=== PATIENT | female | born 1980 | race Caucasian/White ===

== ENCOUNTER 2019-08-24 09:37 | Emergency (ER) | payer OTHER ==
--- NOTE | 2019-08-24 11:43 | EDM.PDOC ---
ED HPI GENERAL MEDICAL PROBLEM - General Chief Complaint: Chest Pain Stated Complaint: ARM NUMBNESS AND CHEST PAIN SENT BY HAJA Time Seen by Provider: 08/24/19 10:06 Source of Information: Reports: Patient History Limitations: Reports: No Limitations - History of Present Illness INITIAL COMMENTS - FREE TEXT/NARRATIVE: The patient presents from the walk in clinic for chest pain. She has some pain to the left chest. She has no shortness of breath with it. This started yesterday. The pain comes and goes. She did go to the walk in clinic for bilateral arm pain, swelling and numbness. 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 She has more numbness, pain and swelling now. She has no history of DVT or PE. She has no history of hypertension or heart disease. Her blood pressure was a little high in the clinic. Onset: Gradual Duration: Day(s): Location: Reports: Chest Quality: Reports: Sharp Severity: Mild Improves with: Reports: None Worsens with: Reports: None Associated Symptoms: Reports: Chest Pain. 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: Musculoskeletal History: Reports: Osteoarthritis Oncologic (Cancer) History: Reports: Cervix Social & Family History - Tobacco Use Smoking Status *Q: Current Every Day Smoker Years of Tobacco use: 20 Packs/Tins Daily: 0.5 ED ROS GENERAL - Review of Systems Review Of Systems: See Below Constitutional: Reports: No Symptoms HEENT: Reports: No Symptoms Respiratory: Reports: No Symptoms Cardiovascular: Reports: Chest Pain Endocrine: Reports: No Symptoms GI/Abdominal: Reports: No Symptoms : Reports: No Symptoms Musculoskeletal: Reports: Other (Bilateral arm numbness, pain and swelling) ED EXAM, GENERAL - Physical Exam Exam: See Below Exam Limited By: No Limitations General Appearance: Alert, No Apparent Distress Ears: Normal External Exam Nose: Normal Inspection Head: Atraumatic, Normocephalic Neck: Normal Inspection Respiratory/Chest: No Respiratory Distress, Lungs Clear, Normal Breath Sounds Cardiovascular: Regular Rate, Rhythm, No Edema, No Murmur GI/Abdominal: Soft, Non-Tender, No Organomegaly, No Mass Back Exam: Normal Inspection Extremities: Other (Tingling when taping the median nerve and numbness with flexion at both wrists. No weakness noted in both hands.) EKG INTERPRETATION EKG Date: 08/24/19 Time: 09:56 Rhythm: NSR Rate (Beats/Min): 66 [place]: Normal P-Wave: Present QRS: Normal ST-T: Normal QT: Normal Course - Vital Signs Last Recorded V/S: Last Vital Signs Temp 97.4 F 08/24/19 09:55 Pulse 70 08/24/19 09:55 Resp 16 08/24/19 09:55 BP 146/100 H 08/24/19 09:55 Pulse Ox 100 08/24/19 09:55 - Orders/Labs/Meds Orders: Active Orders 24 hr Category Date Time Status Cardiac Monitoring [RC] . DIRECTED Care 08/24/19 10:19 Active EKG Documentation Completion [RC] STAT Care 08/24/19 10:19 Active Chest 2V [CR] Stat Exams 08/24/19 10:19 Taken Labs: Laboratory Tests 08/24/19 08/24/19 08/24/19 Range/Units 10:35 10:35 10:35 WBC 8.21 (3.98-10.04) K/mm3 RBC 4.96 (3.98-5.22) M/mm3 Hgb 15.7 (11.2-15.7) gm/dl Hct 46.7 H (34.1-44.9) % MCV 94.2 (79.4-94.8) fl MCH 31.7 (25.6-32.2) pg MCHC 33.6 (32.2-35.5) g/dl RDW Std Deviation 42.7 (36.4-46.3) fL Plt Count 239 (182-369) K/mm3 MPV 9.1 L (9.4-12.3) fl Neut % (Auto) 54.4 (34.0-71.1) % Lymph % (Auto) 36.9 (19.3-51.7) % [place] % (Auto) 7.4 (4.7-12.5) % Eos % (Auto) 0.7 (0.7-5.8) Baso % (Auto) 0.5 (0.1-1.2) % Neut # (Auto) 4.46 (1.56-6.13) K/mm3 Lymph # (Auto) 3.03 (1.18-3.74) K/mm3 [place] # (Auto) 0.61 H (0.24-0.36) K/mm3 Eos # (Auto) 0.06 (0.04-0.36) K/mm3 Baso # (Auto) 0.04 (0.01-0.08) K/mm3 D-Dimer, Quantitative < 0.19 L (0.19-0.50) mg/L Sodium 141 (136-145) mEq/L Potassium 4.5 (3.5-5.1) mEq/L Chloride 106 (98-107) mEq/L Carbon Dioxide 28 (21-32) mEq/L Anion Gap 11.5 (5-15) BUN 14 (7-18) mg/dL Creatinine 0.7 (0.55-1.02) mg/dL Est Cr Clr Drug Dosing 104.93 mL/min Estimated GFR (MDRD) > 60 (>60) mL/min BUN/Creatinine Ratio 20.0 H (14-18) Glucose 96 (74-106) mg/dL Calcium 9.0 (8.5-10.1) mg/dL Total Bilirubin 0.3 (0.2-1.0) mg/dL AST 13 L (15-37) U/L ALT 24 (14-59) U/L Alkaline Phosphatase 62 (46-116) U/L Troponin I < 0.017 (0.00-0.056) ng/mL Total Protein 7.0 (6.4-8.2) g/dl Albumin 3.9 (3.4-5.0) g/dl Globulin 3.1 gm/dL Albumin/Globulin Ratio 1.3 (1-2) - Re-Assessments/Exams Free Text/Narrative Re-Assessment/Exam: 08/24/19 11:42 I ordered an EKG, CXR and labs. Her EKG shows a NSR with no acute changes. Her CXR looks good. Her CBC and CMP look good. Her troponin is negative. Her D-dimer is negative. I feel this is atypical chest pain and carpal tunnel syndrome. I will give her bilateral wrist splints, hydrocodone and a referral to Dr Graves. Departure - Departure Time of Disposition: 11:50 Disposition: Home, Self-Care 01 Condition: Good Clinical Impression: Atypical chest pain, Bilateral carpal tunnel syndrome Prescriptions: Hydrocodone/Acetaminophen [Hydrocodon-Acetaminophen 5-325] 1 - 2 each PO Q6HR PRN #15 tablet PRN Reason: Pain Referrals: PCP,None [Primary Care Provider] - Estiven Graves MD [Physician] - 1 Week Apoorva Fountain PA-C [Physician Animal Care Taker] - 2 Weeks Additional Instructions: Wear the splints as needed for comfort. They will be helpful at night and while you are working. Take tylenol or motrin for pain. If that does not work , take the hydrocodone. Follow up with Dr Graves our orthopedic surgeon in [facility] for your carpal tunnel. Follow up with Apoorva Fountain in our clinic for any other concerns. Please return if you are worse. Sepsis Event Note - Evaluation Sepsis Screening Result: No Definite Risk - Focused Exam Vital Signs: Vital Signs Temp Pulse Resp BP Pulse Ox 08/24/19 09:55 97.4 F 70 16 146/100 H 100 Date Exam was Performed: 08/24/19 Time Exam was Performed: 11:37 - My Orders Last 24 Hours: My Active Orders 08/24/19 10:19 Cardiac Monitoring [RC] . DIRECTED EKG Documentation Completion [RC] STAT Chest 2V [CR] Stat - Assessment/Plan Last 24 Hours: My Active Orders 08/24/19 10:19 Cardiac Monitoring [RC] . DIRECTED EKG Documentation Completion [RC] STAT Chest 2V [CR] Stat
--- NOTE | 2019-08-24 12:06 | CR ---
Chest: PA and lateral views of the chest were obtained. Comparison: No prior chest imaging. Heart size and mediastinum are normal. Lungs are clear. Minimal scoliosis is noted. No acute bony finding is seen. Impression: 1. Nothing acute is appreciated on two-view chest x-ray. Diagnostic code #2 This report was dictated in Mountain Standard Time
== END 2019-08-24 12:23 | disposition home or self-care (01) ==
LOC: JD.ED 09:37
DX: R07.89 Other chest pain (principal); G56.03 Carpal tunnel syndrome, bilateral upper limbs; M19.90 Unspecified osteoarthritis, unspecified site; F17.210 Nicotine dependence, cigarettes, uncomplicated
CPT/HCPCS: 36415; 71046; 71046-26; 80053; 84484; 85025; 85379; 93005; 93010; 99284; 99285-25

== ENCOUNTER 2020-02-02 08:15 | Day surgery (SDC) | payer OTHER ==
[~2020-02-02 08:15] MED LIST: Lactated Ringers 1,000 ML IV SCH; Lidocaine 1% 4 ML ONE; Lidocaine 1%/Sod Bicarbonate in NS 8.4% 1 ML Syringe IDERM PRN; Midazolam 1 MG/ML 2 ML SDV ONE; Propofol 200 MG/20 ML SDV ONE; Sodium Chloride 0.9% 10 ML Syringe FLUSH PRN; ePHEDrine Sulfate/0.9% NaCl/Pf 25 MG/5 ML SYRINGE IV ONE; fentaNYL 100 MCG/2 ML SDV ONE
[2020-02-02] MEDS ORDERED: Ketorolac 30 MG/ML SDV ONE (08:20)
--- NOTE | 2020-02-02 09:08 | PCM.PREANE ---
Preanesthetic Assessment - Procedure Proposed Procedure: right carpal tunnel release - Anesthesia/Transfusion/Family Hx Anesthesia History: Prior Anesthesia Without Reaction Family History of Anesthesia Reaction: No Transfusion History: No Prior Transfusion(s) - Review of Systems General: No Symptoms Pulmonary: No Symptoms Cardiovascular: No Symptoms Gastrointestinal: No Symptoms Neurological: No Symptoms Other: Reports: Anxiety - Physical Assessment NPO Status Date: 02/01/20 NPO Status Time: 19:30 Vital Signs: Last Vital Signs Temp 97.2 F 02/02/20 08:15 Pulse 70 02/02/20 08:15 Resp 16 02/02/20 08:15 BP 137/83 02/02/20 08:15 Pulse Ox 97 02/02/20 08:15 Height: 5 ft 7 in Weight: 93.894 kg ASA Class: 2 Mental Status: Alert & Oriented x3 Airway Class: Mallampati = 1 Dentition: Reports: Normal Dentition Thyro-Mental Finger Breadths: 3 Mouth Opening Finger Breadths: 3 ROM/Head Extension: Full Lungs: Clear to Auscultation, Normal Respiratory Effort Cardiovascular: Regular Rate, Regular Rhythm, No Murmurs - Lab Values: Laboratory Last Values SARS Virus RNA (PCR) Negative (NEGATIVE) 01/31/20 16:30 MRSA (PCR) Negative 01/31/20 08:56 - Allergies Allergies/Adverse Reactions: Allergies Allergy/AdvReac Type Severity Reaction Status Date / Time No Known Allergies Allergy Verified 08/24/19 09:59 - Blood Blood Available: No - Acknowledgements Anesthesia Type Planned: MAC Pt an Appropriate Candidate for the Planned Anesthesia: Yes Alternatives and Risks of Anesthesia Discussed w Pt/Guardian: Yes Pt/Guardian Understands and Agrees with Anesthesia Plan: Yes PreAnesthesia Questionnaire Cardiovascular History: Reports: Hypertension Respiratory History: Reports: None Gastrointestinal History: Reports: None 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: Musculoskeletal History: Reports: Osteoarthritis Neurological History: Reports: Migraines (off and on) Endocrine/Metabolic History: Reports: Obesity/BMI 30+ Oncologic (Cancer) History: Reports: Cervix - Past Surgical History Female Surgical History: Reports: Section, Hysterectomy Musculoskeletal Surgical History: Reports: Other (See Below) (spine) - SUBSTANCE USE Smoking Status *Q: Current Every Day Smoker Tobacco Use Within Last Twelve Months: Cigarettes Second Hand Smoke Exposure: Yes Days Per Week of Alcohol Use: 1 Recreational Drug Use History: No - HOME MEDS Home Medications: Home Meds Acetaminophen/HYDROcodone [[place]derlin 325-5 MG] 1 - 2 tab PO Q6H PRN #10 tablet 02/01 [Rx] - CURRENT (IN HOUSE) MEDS Current Meds: Current Medications Lactated Ringer's (Ringers, Lactated) 1,000 mls @ 125 mls/hr IV ASDIRECTED THAO Stop: 02/02/20 23:00 Lidocaine/Sodium Bicarbonate (Buffered Lidocaine 1% In Ns 8.4%) 0.25 ml IDERM ONETIME PRN PRN Reason: Prior to IV Start Stop: 02/02/20 18:00 Sodium Chloride (Saline Flush) 10 ml FLUSH ASDIRECTED PRN PRN Reason: Keep Vein Open Stop: 02/02/20 18:00 Discontinued Medications Ephedrine Sulfate (Ephedrine 25 Mg/5 Ml Syringe) Confirm Administered Dose 25 mg IV .STK-MED ONE Stop: 02/02/20 07:56 Fentanyl (Sublimaze) Confirm Administered Dose 100 mcg .ROUTE .STK-MED ONE Stop: 02/02/20 07:53 Lidocaine HCl (Xylocaine-Mpf 1%) Confirm Administered Dose 4 mls @ as directed .ROUTE .STK-MED ONE Stop: 02/02/20 07:53 Ketorolac Tromethamine (Toradol) Confirm Administered Dose 30 mg .ROUTE .STK- MED ONE Stop: 02/02/20 08:21 Midazolam HCl (Versed 1 Mg/Ml) Confirm Administered Dose 2 mg .ROUTE .STK-MED ONE Stop: 02/02/20 07:53 Propofol (Diprivan 20 Ml) Confirm Administered Dose 200 mg .ROUTE .STK-MED ONE Stop: 02/02/20 07:53
[2020-02-02] MEDS ORDERED: Bupivacaine 0.25% 10 ML SDV ONE ×2 (09:24→09:29)
[2020-02-02] MEDS ORDERED: Lidocaine 1% 50 ML MDV ONE (09:29)
[2020-02-02] MEDS ORDERED: ceFAZolin 1 GM Vial ONE (10:06)
[2020-02-02] MEDS ORDERED: Midazolam 1 MG/ML 2 ML SDV ONE (10:08)
[2020-02-02] MEDS ORDERED: Lidocaine 1% 2 ML ONE (10:08)
[2020-02-02] MEDS ORDERED: Ondansetron 4 MG/2 ML SDV IVPUSH PRN (10:42)
--- NOTE | 2020-02-02 10:43 | PCM48HPAN ---
Post Anesthesia Note - EVALUATION WITHIN 48HRS OF ANESTHETIC Vital Signs in Normal Range: Yes Patient Participated in Evaluation: Yes Respiratory Function Stable: Yes Airway Patent: Yes Cardiovascular Function Stable: Yes Hydration Status Stable: Yes Pain Control Satisfactory: Yes Nausea and Vomiting Control Satisfactory: Yes Mental Status Recovered: Yes Vital Signs: Last Vital Signs Temp 97.2 F 02/02/20 08:15 Pulse 70 02/02/20 08:15 Resp 16 02/02/20 08:15 BP 137/83 02/02/20 08:15 Pulse Ox 97 02/02/20 08:15 1038 125/89 54 20 98% 97.9
[2020-02-02] MEDS ORDERED: Acetaminophen/HYDROcodone 325-5 MG Tab PO PRN (10:57)
--- NOTE | 2020-02-06 12:20 | PCM.OPNOTE ---
- General Post-Op/Procedure Note Date of Surgery/Procedure: 02/02/20 Operative Procedure(s): right carpal tunnel release Pre Op Diagnosis: right median nerve compression neuropathy Post-Op Diagnosis: Same Anesthesia Technique: Local, MAC Primary Surgeon: Estiven Graves Anesthesia Provider: Shweta Parks Setup Operator: Mary Sandra EBL in mLs: 5 Complications: None Condition: Good
--- NOTE | 2020-02-06 14:45 | OR ---
DATE OF OPERATION: 02/02/2020 SURGEON: Estiven Graves MD OPERATION PERFORMED: Right carpal tunnel release. PREOPERATIVE DIAGNOSIS: Right median nerve compression neuropathy. POSTOPERATIVE DIAGNOSIS: Right median nerve compression neuropathy. ANESTHESIA: Local MAC. ANESTHESIA PROVIDER: Shweta Parks CRNA. DRYWALL CARRIER: Mary Sandra PA-C ESTIMATED BLOOD LOSS: Less than 5 mL. COMPLICATIONS: None. CONDITION: Stable. DESCRIPTION OF PROCEDURE: The patient was identified in the preop holding area. Proper site was marked and identified by the surgeon. The patient was taken back to the operating theater where after adequate anesthesia, the patient's right upper extremity was sterilely prepped and draped in the usual sterile fashion. OR time-out was performed. The patient did not receive antibiotics and it is not indicated for soft tissue hand procedure. At this time, the right upper extremity was exsanguinated and an Esmarch was used as a tourniquet on the forearm. At this time, using 1% lidocaine without epinephrine and 0.25% Marcaine without epinephrine, the palmar cutaneous branch of the median nerve was anesthetized and then the incisional site was anesthetized using Cotto cardinal line and ulnar border of the fourth digit as reference. Once this had set up, an incision was made. Blunt dissection was taken down to the palmar cutaneous fascia. Palmar cutaneous fascia was incised with a [place] blade. At this time, the transverse carpal ligament was identified. A small rent was made in the transverse carpal ligament with a [place] blade under direct visualization. Resection of the transverse carpal ligament was done distally using tenotomy scissors making sure to stop short of the palmar arch. At this time, attention was turned proximally after it was found to be adequately released. Using the tenotomy scissors keeping the tips ulnar to protect the palmar cutaneous branch of the median nerve, the superficial forearm fascia as well as the transverse carpal ligament were resected proximally. It was found to be adequate release both proximally and distally. At this time, adequate saline was irrigated through the wound. 4-0 nylon sutures were used closure of the skin. The patient was placed in a sterile soft dressing and sent to PACU in stable condition. MMODAL /[id number]
== END 2020-02-02 11:35 | disposition home or self-care (01) ==
LOC: JD.SDS 08:15
PROVIDERS: ATTEND Orthopaedic Surgery
DX: G56.01 Carpal tunnel syndrome, right upper limb (principal); F41.9 Anxiety disorder, unspecified; I10 Essential (primary) hypertension; F17.210 Nicotine dependence, cigarettes, uncomplicated; E66.9 Obesity, unspecified; Z68.31 Body mass index [BMI] 31.0-31.9, adult
CPT/HCPCS: 64721; 87635; 87641; A9270; J0690; J1885; J2001; J2250; J2704; J3010; J3490; J7120; 01810; J0171; U0002

== ENCOUNTER 2022-10-19 18:27 | Emergency (ER) | payer BC ==
[2022-10-19] MEDS ORDERED: Sodium Chloride 0.9% 10 ML Syringe FLUSH PRN (18:44)
[2022-10-19] MEDS ORDERED: Sodium Chloride 0.9% 1,000 ML IV STA (18:55)
[2022-10-19] MEDS ORDERED: HYDROmorphone 0.5 MG/0.5 ML Syringe IVPUSH ONE (19:01)
[2022-10-19] MEDS ORDERED: Ondansetron 4 MG/2 ML SDV IVPUSH ONE (19:01)
== END 2022-10-19 20:55 | disposition home or self-care (01) ==
LOC: JD.ED 18:27
DX: J95.89 Other postprocedural complications and disorders of respiratory system, not elsewhere classified (principal); F17.210 Nicotine dependence, cigarettes, uncomplicated; I10 Essential (primary) hypertension; F41.9 Anxiety disorder, unspecified; E11.9 Type 2 diabetes mellitus without complications; F32.9 Major depressive disorder, single episode, unspecified; E66.9 Obesity, unspecified; Z68.35 Body mass index [BMI] 35.0-35.9, adult; Z79.899 Other long term (current) drug therapy; Z79.84 Long term (current) use of oral hypoglycemic drugs
CPT/HCPCS: 36415; 80053; 85025; 96361; 96374; 96375; 99284; J1170; J2405; J3490; J7030; 99283

== ENCOUNTER 2023-01-13 21:19 | Emergency (ER) | payer BC ==
[2023-01-13] MEDS ORDERED: Sodium Chloride 0.9% 10 ML Syringe FLUSH PRN (21:37)
[2023-01-13] MEDS ORDERED: Morphine 4 MG/ML Syringe IVPUSH ONE (21:37)
[2023-01-13] MEDS ORDERED: Aspirin 81 MG Tab.Chew PO ONE (21:37)
[2023-01-13 22:26] LABS: BASOPHILS ABSOLUTE AUTO 0.07 K/mm3 (0.01-0.08); BASOPHILS PERCENT AUTO 0.5 % (0.1-1.2); EOSINOPHILS ABSOLUTE AUTO 0.13 K/mm3 (0.04-0.36); HEMATOCRIT 44.1 % (34.1-44.9); HEMOGLOBIN 14.6 gm/dl (11.2-15.7); IMMATURE GRAN ABSOLUTE AUTO 0.03 K/mm3 (0.00-0.10); IMMATURE GRAN PERCENT AUTO 0.2 % (<=1.0); LYMPHOCYTES ABSOLUTE AUTO 3.93 K/mm3 (1.18-3.74); MEAN CORPUSCULAR HEMOGLOBIN 31.2 pg (25.6-32.2); MEAN CORPUSCULAR HGB CONC 33.1 g/dl (32.2-35.5); MEAN CORPUSCULAR VOLUME 94.2 fl (79.4-94.8); MONOCYTES ABSOLUTE AUTO 0.73 K/mm3 (0.24-0.36); MONOCYTES PERCENT AUTO 5.6 % (4.7-12.5); NEUTROPHILS ABSOLUTE AUTO 8.22 K/mm3 (1.56-6.13); NEUTROPHILS PERCENT AUTO 62.7 % (34.0-71.1); PLATELET COUNT,PLT 284 K/mm3 (182-369); RED BLOOD CELL COUNT 4.68 M/mm3 (3.98-5.22); WHITE BLOOD CELL COUNT,WBC 13.11 K/mm3 (3.98-10.04)
[2023-01-13 22:57] LABS: A/G RATIO 1.1 (1-2); ALBUMIN 3.6 g/dl (3.4-5.0); ANION GAP 9.2 (5-15); BILIRUBIN TOTAL 0.3 mg/dL (0.2-1.0); BUN/CREATININE RATIO 16.3 (14-18); CALCIUM 9.2 mg/dL (8.5-10.1); CREATININE 0.8 mg/dL (0.55-1.02); EST CRCL DRUG DOSING (CG) 88.18 mL/min; POTASSIUM,K 3.2 mEq/L (3.5-5.1); PROTEIN TOTAL,TP 6.8 g/dl (6.4-8.2)
== END 2023-01-13 23:45 | disposition home or self-care (01) ==
LOC: JD.ED 21:19
DX: R07.89 Other chest pain (principal); I10 Essential (primary) hypertension; E11.9 Type 2 diabetes mellitus without complications; E66.9 Obesity, unspecified; Z68.38 Body mass index [BMI] 38.0-38.9, adult; Z79.84 Long term (current) use of oral hypoglycemic drugs; Z79.899 Other long term (current) drug therapy
CPT/HCPCS: 36415; 71045; 80053; 84484; 85025; 85379; 93005; 99285; A9270

== ENCOUNTER 2024-08-11 07:58 | Day surgery (SDC) | payer BC ==
[~2024-08-11 07:58] MED LIST changes: -Lidocaine 1% 4 ML ONE; -Lidocaine 1%/Sod Bicarbonate in NS 8.4% 1 ML Syringe IDERM PRN; -Midazolam 1 MG/ML 2 ML SDV ONE; -Propofol 200 MG/20 ML SDV ONE; +Sodium Chloride 0.9% 10 ML Syringe FLUSH SCH; -ePHEDrine Sulfate/0.9% NaCl/Pf 25 MG/5 ML SYRINGE IV ONE; -fentaNYL 100 MCG/2 ML SDV ONE
[2024-08-11] MEDS: Lactated Ringers 1,000 ML IV SCH (08:30)
[2024-08-11] MEDS ORDERED: fentaNYL 250 MCG/5 ML SDV ONE (09:52)
[2024-08-11] MEDS ORDERED: Propofol 200 MG/20 ML SDV ONE ×2 (09:52→10:17)
[2024-08-11] MEDS ORDERED: Midazolam 1 MG/ML 2 ML SDV ONE (09:52)
[2024-08-11] MEDS ORDERED: Lidocaine 1% 5 ML VIAL ONE (09:52)
[2024-08-11] MEDS ORDERED: Rocuronium 50 MG/5 ML Vial ONE ×2 (09:52→10:29)
[2024-08-11] MEDS ORDERED: ceFAZolin 2 GM Vial ONE (10:02)
[2024-08-11] MEDS ORDERED: Dexamethasone 4 MG/ML 5 ML MDV ONE (10:05)
[2024-08-11] MEDS ORDERED: Ondansetron 4 MG/2 ML SDV ONE (10:05)
[2024-08-11] MEDS ORDERED: HYDROmorphone 0.5 MG/0.5 ML Syringe ONE (10:16)
[2024-08-11] MEDS: Bupivacaine 0.5% 30 ML SDV ONE (10:16)
[2024-08-11] MEDS: EPINEPHrine 1 MG/ML SDV ONE (10:16)
[2024-08-11] MEDS ORDERED: HYDROmorphone 0.5 MG/0.5 ML Syringe IVPUSH PRN (10:25)
[2024-08-11] MEDS ORDERED: Ondansetron 4 MG/2 ML SDV IVPUSH PRN (10:25)
[2024-08-11] MEDS ORDERED: Esmolol 100 MG/10 ML SDV ONE (10:28)
[2024-08-11] MEDS ORDERED: Lactated Ringers 1,000 ML ONE (10:35)
[2024-08-11] MEDS ORDERED: Ketorolac 30 MG/ML SDV ONE (11:00)
[2024-08-11] MEDS ORDERED: Sugammadex Sodium 200 MG/2 ML VIAL IV ONE (11:00)
[2024-08-11] MEDS: fentaNYL 100 MCG/2 ML SDV IVPUSH PRN (12:25)
[2024-08-11] MEDS: oxyCODONE 5 MG Tab PO PRN (13:27)
[2024-08-11] MEDS: Acetaminophen 325 MG Tab PO ONE (13:27)
== END 2024-08-11 14:43 | disposition home or self-care (01) ==
LOC: JD.SDS 07:58
PROVIDERS: ATTEND Surgery
DX: K42.9 Umbilical hernia without obstruction or gangrene (principal); I10 Essential (primary) hypertension; E11.9 Type 2 diabetes mellitus without complications; E66.9 Obesity, unspecified; F17.200 Nicotine dependence, unspecified, uncomplicated; Z79.899 Other long term (current) drug therapy; Z68.28 Body mass index [BMI] 28.0-28.9, adult
CPT/HCPCS: 49591; A9270; C1781; J0171; J0665; J0690; J1100; J1171; J1885; J2250; J2405; J2704; J3010; J3490; J7120; 00752

== ENCOUNTER 2024-08-12 11:03 | Emergency (ER) | payer BC ==
[2024-08-12] MEDS ORDERED: Sodium Chloride 0.9% 10 ML Syringe FLUSH PRN (11:49)
[2024-08-12] MEDS: Iopamidol 612 MG/ML 100 ML Bottle IVPUSH ONE (11:49)
[2024-08-12] MEDS ORDERED: Iopamidol 612 MG/ML 100 ML Bottle IVPUSH ONE (11:52)
[2024-08-12] MEDS: HYDROmorphone 0.5 MG/0.5 ML Syringe IVPUSH PRN (12:23)
[2024-08-12] MEDS: Ondansetron 4 MG/2 ML SDV IVPUSH ONE (12:29)
[2024-08-12 12:32] LABS: BASOPHILS ABSOLUTE AUTO 0.1 K/mm3 (0.0-0.2); BASOPHILS PERCENT AUTO 0.4 % (0.0-1.0); EOSINOPHILS ABSOLUTE AUTO 0.2 K/mm3 (0.0-0.4); EOSINOPHILS PERCENT AUTO 1.2 % (0.0-6.0); HEMATOCRIT 45.3 % (37.0-47.0); HEMOGLOBIN 15.6 gm/dl (12.0-16.0); IMMATURE GRAN ABSOLUTE AUTO 0.04 K/mm3 (0.00-0.05); IMMATURE GRAN PERCENT AUTO 0.3 % (0.0-0.4); LYMPHOCYTES ABSOLUTE AUTO 4.1 K/mm3 (1.0-4.8); LYMPHOCYTES PERCENT AUTO 29.7 % (24.0-44.0); MEAN CORPUSCULAR HEMOGLOBIN 31.6 pg (28.0-32.0); MEAN CORPUSCULAR HGB CONC 34.4 g/dl (32.0-36.0); MEAN CORPUSCULAR VOLUME 91.9 fl (83.0-99.0); MEAN PLATELET VOLUME 9.3 fl (9.4-12.3); MONOCYTES ABSOLUTE AUTO 0.8 K/mm3 (0.0-0.8); MONOCYTES PERCENT AUTO 5.7 % (0.0-8.0); NEUTROPHILS ABSOLUTE AUTO 8.7 K/mm3 (1.8-7.7); NEUTROPHILS PERCENT AUTO 62.7 % (41.0-71.0); PLATELET COUNT,PLT 249 K/mm3 (150-400); RED BLOOD CELL COUNT 4.93 M/mm3 (4.10-5.30); WHITE BLOOD CELL COUNT,WBC 13.89 K/mm3 (3.9-11.3)
[2024-08-12 13:01] LABS: A/G RATIO 1.2 (1-2); ALBUMIN 3.6 g/dl (3.4-5.0); ANION GAP 12.6 (5-15); BILIRUBIN TOTAL 0.5 mg/dL (0.2-1.0); BUN/CREATININE RATIO 18.6 (14-18); CALCIUM 9.8 mg/dL (8.5-10.1); CREATININE 0.7 mg/dL (0.55-1.02); EST CRCL DRUG DOSING (CG) 99.73 mL/min; POTASSIUM,K 3.6 mEq/L (3.5-5.1); PROTEIN TOTAL,TP 6.6 g/dl (6.4-8.2)
[2024-08-12] MEDS: Sodium Chloride 0.9% 10 ML Syringe FLUSH PRN (13:03)
[2024-08-12 13:21] LABS: INR 1.02; PROTHROMBIN TIME 10.8 SECONDS (9.7-12.0)
[2024-08-12] MEDS: Sodium Chloride 0.9% 500 ML IV SCH (13:52)
[2024-08-12] MEDS: Sodium Chloride 0.9% 10 ML Syringe FLUSH ONE (16:10)
== END 2024-08-12 16:47 | disposition home or self-care (01) ==
LOC: JD.ED 11:03
DX: G89.18 Other acute postprocedural pain (principal); R10.84 Generalized abdominal pain; I10 Essential (primary) hypertension; E11.9 Type 2 diabetes mellitus without complications; E66.9 Obesity, unspecified; Z90.710 Acquired absence of both cervix and uterus; Z79.51 Long term (current) use of inhaled steroids; Z79.899 Other long term (current) drug therapy; Z68.27 Body mass index [BMI] 27.0-27.9, adult
CPT/HCPCS: 36415; 74177; 74177-26; 80053; 82150; 83690; 85025; 85610; 96374; 96375; 96376; 99284-25; J1171; J2405; J7030; Q9967

== ENCOUNTER 2024-08-19 23:36 | Emergency (ER) | payer BC ==
[2024-08-20 00:04] LABS: BASOPHILS ABSOLUTE AUTO 0.1 K/mm3 (0.0-0.2); BASOPHILS PERCENT AUTO 0.8 % (0.0-1.0); EOSINOPHILS ABSOLUTE AUTO 0.2 K/mm3 (0.0-0.4); EOSINOPHILS PERCENT AUTO 1.9 % (0.0-6.0); HEMATOCRIT 43.6 % (37.0-47.0); HEMOGLOBIN 15.1 gm/dl (12.0-16.0); IMMATURE GRAN ABSOLUTE AUTO 0.05 K/mm3 (0.00-0.05); IMMATURE GRAN PERCENT AUTO 0.4 % (0.0-0.4); LYMPHOCYTES ABSOLUTE AUTO 3.5 K/mm3 (1.0-4.8); LYMPHOCYTES PERCENT AUTO 29.7 % (24.0-44.0); MEAN CORPUSCULAR HEMOGLOBIN 31.9 pg (28.0-32.0); MEAN CORPUSCULAR HGB CONC 34.6 g/dl (32.0-36.0); MEAN PLATELET VOLUME 9.1 fl (9.4-12.3); MONOCYTES ABSOLUTE AUTO 0.8 K/mm3 (0.0-0.8); NEUTROPHILS ABSOLUTE AUTO 7.1 K/mm3 (1.8-7.7); NEUTROPHILS PERCENT AUTO 60.2 % (41.0-71.0); PLATELET COUNT,PLT 269 K/mm3 (150-400); RED BLOOD CELL COUNT 4.74 M/mm3 (4.10-5.30); WHITE BLOOD CELL COUNT,WBC 11.82 K/mm3 (3.9-11.3)
[2024-08-20] MEDS: Metoclopramide 10 MG/2 ML SDV IVPUSH ONE (00:12)
[2024-08-20] MEDS: HYDROmorphone 1 MG/ML Syringe IVPUSH ONE (00:12)
[2024-08-20] MEDS: diphenhydrAMINE 50 MG/ML SDV IVPUSH ONE (00:12)
[2024-08-20] MEDS: Sodium Chloride 0.9% 1,000 ML IV SCH (00:15)
[2024-08-20 00:24] LABS: ALBUMIN 3.7 g/dl (3.4-5.0); ANION GAP 14.7 (5-15); BILIRUBIN TOTAL 0.2 mg/dL (0.2-1.0); BUN/CREATININE RATIO 17.1 (14-18); C-REACTIVE PROTEIN 2.59 mg/dL (<0.30); CALCIUM 9.6 mg/dL (8.5-10.1); CREATININE 0.7 mg/dL (0.55-1.02); EST CRCL DRUG DOSING (CG) 99.73 mL/min; POTASSIUM,K 3.7 mEq/L (3.5-5.1); PROTEIN TOTAL,TP 7.4 g/dl (6.4-8.2)
[2024-08-20 00:29] LABS: LACTIC ACID 0.5 mmol/L (0.4-2.0)
[2024-08-20] MEDS: Iopamidol 612 MG/ML 100 ML Bottle IVPUSH ONE (00:42)
[2024-08-20 00:59] LABS: SLIDE REVIEW NORMAL SMEAR
[2024-08-20] MEDS: HYDROmorphone 0.5 MG/0.5 ML Syringe IVPUSH ONE (01:13)
[2024-08-20] MEDS: Magnesium Citrate Solution 296 ML Bottle PO ONE (01:46)
[2024-08-20] MEDS: Dicyclomine 10 MG Cap PO ONE (01:46)
== END 2024-08-20 01:58 | disposition home or self-care (01) ==
LOC: JD.ED 23:36
DX: K59.01 Slow transit constipation (principal); I10 Essential (primary) hypertension; E11.9 Type 2 diabetes mellitus without complications; E66.9 Obesity, unspecified; Z90.710 Acquired absence of both cervix and uterus; Z79.51 Long term (current) use of inhaled steroids; Z79.899 Other long term (current) drug therapy; Z68.31 Body mass index [BMI] 31.0-31.9, adult
CPT/HCPCS: 36415; 74177; 80053; 83605; 83690; 85025; 86140; 96361; 96374; 96375; 96376; 99284; A9270; J1171; J1200; J2765; J7030; Q9967; 99283